=== PATIENT | female | born 1960 | race Caucasian/White ===

== ENCOUNTER 2022-01-19 11:04 | Observation (INO) ==
[2022-01-19] MEDS ORDERED: SODIUM CHLORIDE 0.9% 1,000 ML IV STA ×2 (11:43→14:12)
[2022-01-19 12:48] LABS: Basophils # 0.1 10*3/uL (0.0-0.2); Basophils % 0.5 % (0.0-0.8); Eosinophils % 0.1 % (0.00-10.9); Hematocrit 45.1 VOL% (35.7-47.0); Hemoglobin 14.4 GM/DL (12.0-16.0); Immature Granulocytes % 1.3 %; Immature Granulocytes Absolute 0.12 #; Lymphocytes # 1.7 10*3/uL (1.4-4.0); Lymphocytes % 18.3 % (21.3-54.2); Mean Corpuscular HGB Conc 31.9 GM/DL (32-36); Mean Corpuscular Volume 92.4 FL (87-102); Mean Platelet Volume 11.2 FL (9.6-12.0); Monocytes % 10.5 % (1.7-12.7); Neutrophils % 69.3 % (38.7-73.9); Platelet Count 217 T/CUMM (130-400); Red Blood Count 4.88 MC/CUMM (3.8-5.5); White Blood Count 9.3 T/CUMM (4-12)
[2022-01-19 13:07] LABS: Albumin 3.5 G/DL (3.4-5.0); Bilirubin,Total 0.5 MG/DL (0.20-1.00); Calcium 9.2 MG/DL (8.5-10.1); Osmolality,Calculated 264.5 MOS/KG (273-304); Potassium 3.9 MMOL/L (3.5-5.1); Total Protein 7.3 G/DL (6.4-8.2)
[2022-01-19 14:35] LABS: PT Patient Result 10.9 SECS (10.5-12.0)
[2022-01-19] MEDS ORDERED: ACETAMINOPHEN 325 MG TABLET PO PRN (14:53)
[2022-01-19] MEDS ORDERED: GLUCAGON 1 MG VIAL IM PRN (14:53)
[2022-01-19] MEDS ORDERED: ONDANSETRON 4 MG/2 ML VIAL IV PRN (14:53)
[2022-01-19] MEDS ORDERED: DICYCLOMINE 20 MG TABLET PO PRN (14:56)
[2022-01-19] MEDS ORDERED: ALPRAZolam 0.5 MG TABLET PO PRN (14:56)
[2022-01-19] MEDS ORDERED: DEXTROSE 10% 250 ML BAG IV PRN (15:03)
[2022-01-19 16:16] LABS: Risk Ratio 2.51; Thyroid Stimulating Hormone 2.68 uIU/ml (0.358-3.74); VLDL Cholesterol 23.8 MG/DL
[2022-01-19] MEDS: SODIUM CHLORIDE 0.9% 1,000 ML IV SCH (16:46)
[2022-01-19] MEDS: INSULIN LISPRO 100 UNIT/ML SUBCUT SCH ×2 (18:18→22:25)
[2022-01-19] MEDS ORDERED: GABAPENTIN 300 MG CAPSULE PO SCH (21:00)
[2022-01-19] MEDS ORDERED: atenoloL 50 MG TABLET PO SCH (21:00)
[2022-01-19] MEDS ORDERED: AMITRIPTYLINE 25 MG TABLET PO SCH (21:00)
[2022-01-19] MEDS: SUCRALFATE 1 GM TABLET PO SCH (22:23)
[2022-01-19] MEDS: APIXABAN 5 MG TABLET PO SCH (22:24)
[2022-01-19] MEDS: PANTOPRAZOLE 40 MG TABLET PO SCH (22:24)
[2022-01-20] MEDS: SODIUM CHLORIDE 0.9% 1,000 ML IV SCH (02:07)
[2022-01-20 05:12] LABS: Bacteria,Urine Occasional /HPF (Few); Mucus,Urine Occasional /LPF (Occasional); RBC,Urine 2 /HPF (0-4); Squamous Epithelial Cell,Urine Occasional /HPF (0-10)
[2022-01-20 05:13] LABS: Bilirubin,Urine Negative (Negative); Blood, Urine Trace mg/dL (Negative); Glucose,Urine (UA) Negative (Negative); Ketones,Urine Negative (Negative); Nitrite,Urine Negative (Negative); Protein,Urine Negative (Negative); Urine Appearance Clear (Clear); Urine Color Yellow (Yellow); Urine Specific Gravity 1.015 (1.001-1.035)
[2022-01-20 05:14] LABS: Urine Urobilinogen 0.2 eU/dL (<2.0)
[2022-01-20 05:25] LABS: Basophils % 0.5 % (0.0-0.8); Eosinophils % 0.3 % (0.00-10.9); Hematocrit 42.9 VOL% (35.7-47.0); Hemoglobin 13.6 GM/DL (12.0-16.0); Immature Granulocytes % 0.8 %; Immature Granulocytes Absolute 0.05 #; Lymphocytes # 2.8 10*3/uL (1.4-4.0); Lymphocytes % 44.6 % (21.3-54.2); Mean Corpuscular HGB Conc 31.7 GM/DL (32-36); Mean Corpuscular Volume 92.9 FL (87-102); Mean Platelet Volume 11.4 FL (9.6-12.0); Neutrophils % 38.8 % (38.7-73.9); Platelet Count 197 T/CUMM (130-400); Red Blood Count 4.62 MC/CUMM (3.8-5.5); Red Cell Distribution Width 14.2 % (9.3-17.3); White Blood Count 6.3 T/CUMM (4-12)
[2022-01-20 05:39] LABS: Calcium 8.4 MG/DL (8.5-10.1); Osmolality,Calculated 280.3 MOS/KG (273-304); Potassium 3.6 MMOL/L (3.5-5.1)
[2022-01-20] MEDS ORDERED: LEVOTHYROXINE 75 MCG TABLET PO SCH (06:30)
[2022-01-20] MEDS ORDERED: ASPIRIN EC 81 MG TABLET PO SCH (09:00)
[2022-01-20] MEDS: INSULIN LISPRO 100 UNIT/ML SUBCUT SCH ×2 (09:53→13:04)
[2022-01-20] MEDS: SUCRALFATE 1 GM TABLET PO SCH (09:54)
[2022-01-20] MEDS: PANTOPRAZOLE 40 MG TABLET PO SCH (09:54)
[2022-01-20] MEDS: APIXABAN 5 MG TABLET PO SCH (09:54)
[2022-01-20] MEDS ORDERED: SODIUM CHLORIDE 0.9% 1,000 ML IV ONE (09:59)
[2022-01-20 12:59] VITALS: BP 106/56
== END 2022-01-20 13:03 | disposition home or self-care (01) ==
LOC: N.TELES 11:04 → N.ED 11:04 → N.TELES 17:35
PROVIDERS: ADMIT Internal Medicine; ATTEND Internal Medicine